=== PATIENT | male | born 1975 | race Caucasian/White ===

== ENCOUNTER 2021-09-01 19:50 | Emergency (ER) | payer OTHER ==
[~2021-09-01] VITALS: Ht 185.4 cm; Wt 84.4 kg
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
--- NOTE | 2021-09-01 20:35 | NUR ---
OJNAH MEJIAS AT PT'S BEDSIDE
[2021-09-01] MEDS ORDERED: MORPHINE SULFATE INJ 4 MG/ML DISP.SYRIN ONE ×2 (20:48→23:52)
[2021-09-01] MEDS ORDERED: ONDANSETRON HCL/PF 4 MG/2 ML VIAL ONE (20:48)
[2021-09-01] MEDS ORDERED: KETOROLAC TROMETHAMINE 15 MG/ML VIAL ONE (20:48)
[2021-09-01] MEDS ORDERED: MORPHINE SULFATE INJ 2 MG/ML DISP.SYRIN IV ONE (21:00)
[2021-09-01] MEDS ORDERED: ONDANSETRON HCL/PF 4 MG/2 ML VIAL IVP ONE (21:00)
[2021-09-01] MEDS ORDERED: IV NS 0.9% 1,000 ML BAG IV ONE (21:00)
[2021-09-01] MEDS ORDERED: KETOROLAC TROMETHAMINE INJ 30 MG/ML VIAL IV ONE (21:00)
--- NOTE | 2021-09-01 21:04 | NUR ---
XRAY AT BEDSIDE
[2021-09-01] MEDS ORDERED: HYDROMORPHONE 1 MG/1 ML DISP.SYRIN IV ONE (21:30)
[2021-09-01] MEDS ORDERED: HYDROMORPHONE 1 MG/1 ML DISP.SYRIN ONE (21:55)
--- NOTE | 2021-09-01 22:19 | NUR ---
URINE COLLECTED AND SENT TO LAB
[2021-09-01 22:32] LABS: BILIRUBIN,URINE NEGATIVE (NEGATIVE); COLOR,URINE YELLOW (YELLOW); LEUKOCYTE ESTERASE ,URINE NEGATIVE (NEGATIVE); NITRITE, URINE NEGATIVE (NEGATIVE); PROTEIN,URINE NEGATIVE (NEGATIVE); UGLUCOSE NEGATIVE (NEGATIVE); UROBILINOGEN,URINE 0.2 EU/dL (0.2)
[2021-09-01] MEDS ORDERED: HYDR-4303 PO (23:19)
[2021-09-01] MEDS ORDERED: NAPR-1009 PO (23:19)
--- NOTE | 2021-09-02 00:03 | NUR ---
Patient discharged to home in stable condition. Written and verbal after care instructions given. Patient verbalizes understanding of instruction. PT ambulatory with a steady gait
[2021-09-02] MEDS ORDERED: MORPHINE SULFATE INJ 4 MG/ML DISP.SYRIN IV ONE (00:30)
[2021-09-02 02:10] VITALS: BP 117/73
== END 2021-09-02 00:03 | disposition home or self-care (01) ==
LOC: ER 19:54
DX: S22.42XA Multiple fractures of ribs, left side, initial encounter for closed fracture (principal); S70.02XA Contusion of left hip, initial encounter; S30.811A Abrasion of abdominal wall, initial encounter; S80.212A Abrasion, left knee, initial encounter; S09.90XA Unspecified injury of head, initial encounter; Z60.2 Problems related to living alone; V29.88XA Motorcycle rider (driver) (passenger) injured in other specified transport accidents, initial encounter; Y93.55 Activity, bike riding; Y92.89 Other specified places as the place of occurrence of the external cause; Y99.8 Other external cause status
CPT/HCPCS: 71100; 73503; 81003; 96361; 96374; 96375; 96376; 99284; J1170; J1885; J2270 ×2; J2405; J7030; 73502

== ENCOUNTER 2023-11-24 17:37 | Emergency (ER) | payer OTHER ==
[~2023-11-24] VITALS: Ht 185.4 cm; Wt 86.2 kg
[~2023-11-24 17:37] MED LIST: HYDR-4303 PO; NAPR-1009 PO
[2023-11-24 17:54] VITALS: BP 115/73; TEMP 98.2; O2SAT 98
== END 2023-11-24 19:39 | disposition home or self-care (01) ==
LOC: ER 17:42
DX: S93.601A Unspecified sprain of right foot, initial encounter (principal); W01.10XA Fall on same level from slipping, tripping and stumbling with subsequent striking against unspecified object, initial encounter; Y93.89 Activity, other specified; Y92.89 Other specified places as the place of occurrence of the external cause; Y99.8 Other external cause status
CPT/HCPCS: 73630-TC

== ENCOUNTER 2024-11-02 06:35 | Inpatient (IN) | payer OTHER ==
[~2024-11-02] VITALS: Ht 185.4 cm; Wt 88.5 kg
[2024-11-02] MEDS: IV NS 0.9% 1,000 ML BAG IV ONE (07:03)
[2024-11-02 07:21] LABS: BASOPHILS % (AUTO) 0.1 % (0.0-2.0); EOSINOPHILS % (AUTO) 0.2 % (0.0-6.0); HEMATOCRIT 47 % (39-51); LYMPHOCYTES # (AUTO) 1.6 K/uL (0.8-4.8); MEAN CORPUSCULAR HEMOGLOBIN 32 PG (26.0-33.0); MEAN CORPUSCULAR HGB CONC 34 g/dl (31.0-36.0); MEAN CORPUSCULAR VOLUME 93 fL (80-96); MONOCYTES % (AUTO) 8.4 % (2.0-12.0); NEUTROPHILS # (AUTO) 9.6 K/uL (1.8-8.9); NEUTROPHILS % (AUTO) 78.3 % (43.0-81.0); PLATELET COUNT (AUTO) 210 K/uL (150-450); RED BLOOD CELL COUNT(AUTO) 5.08 MIL/uL (4.5-6.0); WHITE BLOOD COUNT (AUTO) 12.3 K/uL (4.3-11.0)
[2024-11-02 07:31] LABS: CALCIUM, SERUM 9.1 mg/dL (8.5-10.1); CREATININE 0.9 mg/dL (0.6-1.3)
[2024-11-02] MEDS ORDERED: KETOROLAC TROMETHAMINE 15 MG/ML VIAL ONE (07:31)
[2024-11-02] MEDS: KETOROLAC TROMETHAMINE 15 MG/ML VIAL IV ONE (07:34)
[2024-11-02 07:36] LABS: ALBUMIN 4.1 g/dL (3.4-5.0); BILIRUBIN,DIRECT 0.2 mg/dL (0.0-0.2); BILIRUBIN,TOTAL 1.3 mg/dL (0.2-1.0); TOTAL PROTEIN, SERUM 7.5 g/dL (6.4-8.2)
[2024-11-02] MEDS ORDERED: MORPHINE SULFATE INJ 4 MG/ML DISP.SYRIN ONE ×2 (08:55→15:20)
[2024-11-02] MEDS: MORPHINE SULFATE INJ 2 MG/ML DISP.SYRIN IV ONE (09:01)
[2024-11-02] MEDS ORDERED: MULT-594 PO (09:05)
[2024-11-02] MEDS ORDERED: EMTR1TAB17 MT (09:05)
[2024-11-02] MEDS ORDERED: OMEG-167 PO (09:05)
[2024-11-02] MEDS ORDERED: LOPE2TAB25 PO (09:05)
[2024-11-02] MEDS: PIPERACILLIN /TAZOBACTAM 3.375 G in IV D5W 50 ML IV ONE (09:17)
[2024-11-02 10:00] VITALS: O2SAT 98
[2024-11-02] MEDS ORDERED: ONDANSETRON HCL/PF 4 MG/2 ML VIAL IVP PRN (10:00)
[2024-11-02] MEDS ORDERED: Z GUARD REMEDY 4 OZ OINT TP PRN (10:00)
[2024-11-02] MEDS ORDERED: MAGNESIUM HYDROXIDE 30 ML UDC PO PRN (10:00)
[2024-11-02] MEDS ORDERED: MAG HYDROX/AL HYDROX/SIMETH 30 ML UDC PO PRN (10:00)
[2024-11-02] MEDS: ZOSYN IVPB 3.375 G in IV D5W 50ml IV SCH (13:13)
[2024-11-02] MEDS: IV NS 0.9% 1,000 ML IV PRN (13:16)
[2024-11-02] MEDS ORDERED: MIDAZOLAM HCL 2 MG/2ML VIAL ONE (15:20)
[2024-11-02] MEDS ORDERED: FENTANYL PF 100MCG/2ML AMPUL ONE (15:20)
[2024-11-02] MEDS ORDERED: ROCURONIUM BROMIDE 50 MG/5 ML ONE (15:21)
[2024-11-02] MEDS ORDERED: BUPIVACAINE 0.5 % PF 150 MG/30 ML VIAL ONE (15:59)
[2024-11-02] MEDS ORDERED: GLYCOPYRROLATE 0.2 MG/ML VIAL ONE ×4 (16:38→16:39)
[2024-11-02] MEDS: ACETAMINOPHEN 325 MG TABLET PO PRN (20:44)
[2024-11-02] MEDS: MORPHINE SULFATE INJ 4 MG/ML DISP.SYRIN IV PRN (23:46)
[2024-11-03 06:18] LABS: BASOPHILS % (AUTO) 0.6 % (0.0-2.0); EOSINOPHILS # (AUTO) 0.1 K/uL (0.0-0.7); EOSINOPHILS % (AUTO) 2.1 % (0.0-6.0); HEMATOCRIT 38 % (39-51); HEMOGLOBIN 13.7 g/dL (13.5-17.5); LYMPHOCYTES # (AUTO) 1.9 K/uL (0.8-4.8); LYMPHOCYTES % (AUTO) 29.4 % (20.0-44.0); MEAN CORPUSCULAR HEMOGLOBIN 33 PG (26.0-33.0); MEAN CORPUSCULAR HGB CONC 36 g/dl (31.0-36.0); MEAN CORPUSCULAR VOLUME 93 fL (80-96); MONOCYTES # (AUTO) 0.8 K/uL (0.1-1.30); NEUTROPHILS # (AUTO) 3.6 K/uL (1.8-8.9); NEUTROPHILS % (AUTO) 55.9 % (43.0-81.0); PLATELET COUNT (AUTO) 170 K/uL (150-450); RED BLOOD CELL COUNT(AUTO) 4.12 MIL/uL (4.5-6.0); RED CELL DISTRIBUTION WIDTH 12.6 % (11.5-15.0); WHITE BLOOD COUNT (AUTO) 6.4 K/uL (4.3-11.0)
[2024-11-03 06:37] LABS: CALCIUM, SERUM 7.6 mg/dL (8.5-10.1); CREATININE 1.1 mg/dL (0.6-1.3); POTASSIUM 4.1 mmol/L (3.5-5.1)
[2024-11-03 07:30] VITALS: BP 106/59; TEMP 98.6; O2SAT 95
[2024-11-03] MEDS: PIPERACILLIN /TAZOBACTAM 3.375 G in IV D5W 100 ML IV SCH (15:11)
[2024-11-03 16:12] VITALS: BP 115/74; TEMP 97.5; O2SAT 95
== END 2024-11-03 17:40 | disposition home or self-care (01) | DRG 234 ==
LOC: ER 06:37 → MED 09:50
PROVIDERS: ADMIT Internal Medicine; ATTEND Internal Medicine
PROC: 0DTJ4ZZ Resection of Appendix, Percutaneous Endoscopic Approach (ICD-10-PCS; principal; 2024-11-02 15:30)
DX: K35.30 Acute appendicitis with localized peritonitis, without perforation or gangrene (principal)
CPT/HCPCS: 36415; 71045-TC; 80048-TC; 80076-TC; 83690-TC; 83735-TC; 84100-TC; 85025-TC; 86850-TC; A4223; G0378; J0690; J1885; J2250; J2270; J2405; J2543; J2704; J3010; J3490; J7030; J7040; J7050; J7060